=== PATIENT | female | born 1965 | race American Indian/Alaskan Native ===

== ENCOUNTER 2017-02-16 15:09 | Emergency (ER) | payer OTHER ==
[2017-02-16 15:37] VITALS: BP 177/108
--- NOTE | 2017-02-16 16:48 | Emergency Department Report ---
ED ENT HPI - General Chief complaint: Sore Throat Stated complaint: TONSIL SWOLLEN AND FEVER Time Seen by Provider: 02/16/17 16:47 Source: patient Mode of arrival: Ambulatory Limitations: No Limitations - History of Present Illness MD complaint: sore throat -: Gradual, days(s) Location: throat Quality: burning, aching Worsens with: swallowing - Related Data Home Medications Medication Instructions Recorded Confirmed Last Taken Topiramate [Topamax] 50 mg PO BID 12/23/15 12/23/15 Unknown Previous Rx's Medication Instructions Recorded Last Taken Type Aspirin EC [Aspirin Enteric Coated 325 mg PO QDAY #30 tablet 12/24/15 Unknown Rx TAB] Calcium Carbonate [Calcium] 500 mg PO DAILY #30 tablet 12/24/15 Unknown Rx Diltiazem HCl [Diltiazem ER] 180 mg PO DAILY #30 capsule.er 12/24/15 Unknown Rx Potassium Chloride [K-Dur] 10 meq PO QDAY #30 tablet 12/24/15 Unknown Rx Ranitidine HCl [Zantac 150 MG TAB] 150 mg PO BID #60 tablet 12/24/15 Unknown Rx Sertraline [Zoloft] 50 mg PO QDAY #30 tablet 12/24/15 Unknown Rx Topiramate [Topamax] 50 mg PO BID #60 tablet 12/24/15 Unknown Rx Acetaminophen/Codeine [Tylenol #3] 1 tab PO Q6H PRN #8 tab 05/02/16 Unknown Rx Hydrochlorothiazide [HCTZ] 25 mg PO QDAY #30 tablet 05/02/16 Unknown Rx Amoxicillin [Amoxicillin TAB] 875 mg PO BID #20 tablet 02/16/17 Unknown Rx Prednisone [predniSONE 10 mg 10 mg PO .TAPER #1 tab.ds.pk 02/16/17 Unknown Rx (6-Day Pack, 21 Tabs)] Promethazine [Phenergan TAB] 25 mg PO Q8HR PRN #12 tab 02/16/17 Unknown Rx Allergies Allergy/AdvReac Type Severity Reaction Status Date / Time No Known Allergies Allergy Verified 05/01/16 18:02 ED Dental HPI - General Chief complaint: Sore Throat Stated complaint: TONSIL SWOLLEN AND FEVER Time Seen by Provider: 02/16/17 16:47 Source: patient Mode of arrival: Ambulatory Limitations: No Limitations - History of Present Illness MD complaint: sore throat -: Gradual, days(s) Severity: moderate Quality: burning Worsens with: swallowing - Related Data Home Medications Medication Instructions Recorded Confirmed Last Taken Topiramate [Topamax] 50 mg PO BID 12/23/15 12/23/15 Unknown Previous Rx's Medication Instructions Recorded Last Taken Type Aspirin EC [Aspirin Enteric Coated 325 mg PO QDAY #30 tablet 12/24/15 Unknown Rx TAB] Calcium Carbonate [Calcium] 500 mg PO DAILY #30 tablet 12/24/15 Unknown Rx Diltiazem HCl [Diltiazem ER] 180 mg PO DAILY #30 capsule.er 12/24/15 Unknown Rx Potassium Chloride [K-Dur] 10 meq PO QDAY #30 tablet 12/24/15 Unknown Rx Ranitidine HCl [Zantac 150 MG TAB] 150 mg PO BID #60 tablet 12/24/15 Unknown Rx Sertraline [Zoloft] 50 mg PO QDAY #30 tablet 12/24/15 Unknown Rx Topiramate [Topamax] 50 mg PO BID #60 tablet 12/24/15 Unknown Rx Acetaminophen/Codeine [Tylenol #3] 1 tab PO Q6H PRN #8 tab 05/02/16 Unknown Rx Hydrochlorothiazide [HCTZ] 25 mg PO QDAY #30 tablet 05/02/16 Unknown Rx Amoxicillin [Amoxicillin TAB] 875 mg PO BID #20 tablet 02/16/17 Unknown Rx Prednisone [predniSONE 10 mg 10 mg PO .TAPER #1 tab.ds.pk 02/16/17 Unknown Rx (6-Day Pack, 21 Tabs)] Promethazine [Phenergan TAB] 25 mg PO Q8HR PRN #12 tab 02/16/17 Unknown Rx Allergies Allergy/AdvReac Type Severity Reaction Status Date / Time No Known Allergies Allergy Verified 05/01/16 18:02 ED Review of Systems ROS: Stated complaint: TONSIL SWOLLEN AND FEVER Other details as noted in HPI Constitutional: chills, fever, malaise Eyes: denies: eye pain, vision change ENT: throat pain Respiratory: denies: cough Cardiovascular: denies: chest pain, palpitations Gastrointestinal: denies: abdominal pain, nausea, vomiting, diarrhea Skin: denies: rash, lesions Neurological: headache ED Past Medical Hx - Past Medical History Hx Hypertension: Yes Hx Congestive Heart Failure: No Hx Diabetes: No Hx GERD: Yes Hx Arthritis: Yes Hx Psychiatric Treatment: Yes (DEPRESSION) Hx Asthma: No Hx COPD: No Additional medical history: ULCERS. ENLARGED LIVER - Surgical History Additional Surgical History: CERVICAL CELLS REMOVED - Social History Smoking Status: Never Smoker Substance Use Type: None - Medications Home Medications: Home Medications Medication Instructions Recorded Confirmed Last Taken Type Topiramate [Topamax] 50 mg PO BID 12/23/15 12/23/15 Unknown History Aspirin EC [Aspirin Enteric Coated 325 mg PO QDAY #30 tablet 12/24/15 Unknown Rx TAB] Calcium Carbonate [Calcium] 500 mg PO DAILY #30 tablet 12/24/15 Unknown Rx Diltiazem HCl [Diltiazem ER] 180 mg PO DAILY #30 capsule.er 12/24/15 Unknown Rx Potassium Chloride [K-Dur] 10 meq PO QDAY #30 tablet 12/24/15 Unknown Rx Ranitidine HCl [Zantac 150 MG TAB] 150 mg PO BID #60 tablet 12/24/15 Unknown Rx Sertraline [Zoloft] 50 mg PO QDAY #30 tablet 12/24/15 Unknown Rx Topiramate [Topamax] 50 mg PO BID #60 tablet 12/24/15 Unknown Rx Acetaminophen/Codeine [Tylenol #3] 1 tab PO Q6H PRN #8 tab 05/02/16 Unknown Rx Hydrochlorothiazide [HCTZ] 25 mg PO QDAY #30 tablet 05/02/16 Unknown Rx Amoxicillin [Amoxicillin TAB] 875 mg PO BID #20 tablet 02/16/17 Unknown Rx Prednisone [predniSONE 10 mg 10 mg PO .TAPER #1 tab.ds.pk 02/16/17 Unknown Rx (6-Day Pack, 21 Tabs)] Promethazine [Phenergan TAB] 25 mg PO Q8HR PRN #12 tab 02/16/17 Unknown Rx ED Physical Exam - General Limitations: No Limitations General appearance: alert, in no apparent distress - Head Head exam: Present: atraumatic, normocephalic - Eye Eye exam: Present: normal appearance - Expanded ENT Exam Expanded Throat exam: Positive: tonsillar erythema, tonsillar exudate - Neck Neck exam: Present: full ROM. Absent: tenderness, meningismus, lymphadenopathy - Respiratory Respiratory exam: Present: normal lung sounds bilaterally. Absent: respiratory distress, wheezes, rales - Cardiovascular Cardiovascular Exam: Present: regular rate - GI/Abdominal GI/Abdominal exam: Present: soft. Absent: distended, tenderness, guarding - Neurological Exam Neurological exam: Present: alert, oriented X3, CN II-XII intact. Absent: altered - Skin Skin exam: Present: warm, dry, intact, normal color. Absent: rash ED Course Vital Signs 02/16/17 15:31 Temperature 98.9 F Pulse Rate 93 H Respiratory 18 Rate Blood Pressure 177/108 O2 Sat by Pulse 96 Oximetry Critical care attestation.: If time is entered above; I have spent that time in minutes in the direct care of this critically ill patient, excluding procedure time. ED Disposition Clinical Impression: Tonsillitis Disposition: DISCHARGED TO HOME OR SELFCARE Is pt being admited?: No Condition: Stable Instructions: Tonsillitis (ED) Prescriptions: Amoxicillin [Amoxicillin TAB] 875 mg PO BID #20 tablet Prednisone [predniSONE 10 mg (6-Day Pack, 21 Tabs)] 10 mg PO .TAPER #1 tab.ds.pk Promethazine [Phenergan TAB] 25 mg PO Q8HR PRN #12 tab PRN Reason: Nausea Forms: Work/School Release Form(ED)
[2017-02-16] MEDS ORDERED: XYLOCAINE 1% MPF 5 mL INFILTRATI ONE (16:51)
[2017-02-16] MEDS ORDERED: ROCEPHIN IM ONE (16:51)
== END 2017-02-16 17:31 | disposition home or self-care (01) ==
LOC: ED 15:09
DX: J03.90 Acute tonsillitis, unspecified (principal); I10 Essential (primary) hypertension; K21.9 Gastro-esophageal reflux disease without esophagitis; M19.90 Unspecified osteoarthritis, unspecified site; F32.9 Major depressive disorder, single episode, unspecified; Z79.82 Long term (current) use of aspirin
CPT/HCPCS: 87116; 87430; 96372; 99282; J0696

== ENCOUNTER 2017-09-09 16:30 | Emergency (ER) | payer SELFPAY ==
--- NOTE | 2017-09-09 17:11 | Emergency Department Report ---
Stated Complaint: RT EYE REDNESS Time Seen by Provider: 09/09/17 17:03 - HPI History of Present Illness: Patient is a 51 y/o female with h/o HTN who presents due to subconjunctival bleeding x 3 days. Patient states that she has similar episode about 8 days ago that resolved. Patient denies any eye injury, she denies any coughing or vomiting. Patient states that she has had elevated BP for about 6 week. Patient states that her PCP added norvasc and lisinopril to her HTN medications. She also takes HCTZ. Patient also admits of headache and blurred vision. She denies any numbness or tingling. - ROS Review of Systems: no fever, no chills patientc/o headache, blurred vision, patient denies any numbness or tingling. patient admits of having left chest pain - Exam Physical Exam: alert and oriented x 3, NAD, negative FAST. NO NEUROLOGICAL FOCAL DEFICITS. MSE screening note: Focused history and physical exam performed. Due to findings the following was ordered:CARDIAC PACK ED Disposition for MSE Condition: Stable
[2017-09-09 17:43] LABS: Basophils % (Auto) 0.9 % (0.0-1.8); Eosinophils % (Auto) 2.4 % (0.0-4.3); Hematocrit 43.1 % (30.3-42.9); Hemoglobin 14.5 gm/dl (10.1-14.3); Mean Corpuscular HGB Conc 34 % (30-34); Mean Corpuscular Hemoglobin 29 pg (28-32); Mean Corpuscular Volume 85 fl (79-97); Platelet Count 271 K/mm3 (140-440); Red Blood Count 5.09 M/mm3 (3.65-5.03); Red Cell Distribution Width 15.4 % (13.2-15.2); White Blood Count 6.8 K/mm3 (4.5-11.0)
[2017-09-09 17:52] LABS: INR 1.05 (0.87-1.13)
[2017-09-09 17:53] LABS: Partial Thromboplastin Time 27.2 Sec. (24.2-36.6)
[2017-09-09 18:01] LABS: Alanine Aminotransferase 10 units/L (7-56); Albumin 3.9 g/dL (3.9-5); Alkaline Phosphatase 116 units/L (35-129); Anion Gap 17 mmol/L; BUN/Creatinine Ratio 24; Blood Urea Nitrogen 17 mg/dL (7-17); Calcium 9.4 mg/dL (8.4-10.2); Carbon Dioxide 26 mmol/L (22-30); Chloride 102.9 mmol/L (98-107); Glucose 88 mg/dL (65-100); Potassium 3.7 mmol/L (3.6-5.0); Sodium 142 mmol/L (137-145); Total Protein 7.7 g/dL (6.3-8.2)
--- NOTE | 2017-09-09 19:34 | XRay Report ---
FINAL REPORT EXAM: XR CHEST ROUTINE 2V HISTORY: Chest Pain TECHNIQUE: PA and lateral views of the chest PRIORS: None. FINDINGS: Lines, tubes, and devices: N/A Lungs and pleura: Trachea is normal in position. Lungs are clear of infiltrate, pleural effusion, vascular congestion, or pneumothorax. Cardiomediastinal silhouette: Cardiac and mediastinal silhouettes are unremarkable. Other: Bony structures are intact. IMPRESSION: No acute cardiopulmonary process seen.
[2017-09-09 22:24] VITALS: BP 141/76
--- NOTE | 2017-09-09 23:01 | Emergency Department Report ---
HPI - General Chief Complaint: High BP Time Seen by Provider: 09/09/17 17:03 - HPI HPI: This is a 51 year-old female presents to the emergency department with complaint of some recent hypertension, a busted vessel in the right eye, intermittent blurry vision and intermittent headaches. Patient also had some chest pain a few days ago but that has since resolved. She has a past medical history of arthritis, GERD, hypertension. She goes to [facility] but is looking for a different primary care physician. She is on Norvasc, lisinopril and hydrochlorothiazide and says she is not sure if that is controlling her blood pressure appropriately. She denies any slurred speech, shortness of breath or any neurological deficits. She is not taking anything for her symptoms prior presentation. ED Past Medical Hx - Past Medical History Previous Medical History?: Yes Hx Hypertension: Yes Hx Congestive Heart Failure: No Hx Diabetes: No Hx GERD: Yes Hx Arthritis: Yes Hx Psychiatric Treatment: Yes (DEPRESSION) Hx Asthma: No Hx COPD: No Additional medical history: ULCERS. ENLARGED LIVER - Surgical History Past Surgical History?: Yes Additional Surgical History: CERVICAL CELLS REMOVED - Social History Smoking Status: Never Smoker Substance Use Type: Alcohol - Medications Home Medications: Home Medications Medication Instructions Recorded Confirmed Last Taken Type Topiramate [Topamax] 50 mg PO BID 12/23/15 12/23/15 Unknown History Aspirin EC [Aspirin Enteric Coated 325 mg PO QDAY #30 tablet 12/24/15 Unknown Rx TAB] Calcium Carbonate [Calcium] 500 mg PO DAILY #30 tablet 12/24/15 Unknown Rx Diltiazem HCl [Diltiazem 24Hr ER] 180 mg PO DAILY #30 capsule.er 12/24/15 Unknown Rx Potassium Chloride [K-Dur] 10 meq PO QDAY #30 tablet 12/24/15 Unknown Rx Ranitidine HCl [Zantac 150 MG TAB] 150 mg PO BID #60 tablet 12/24/15 Unknown Rx Sertraline [Zoloft] 50 mg PO QDAY #30 tablet 12/24/15 Unknown Rx Topiramate [Topamax] 50 mg PO BID #60 tablet 12/24/15 Unknown Rx Acetaminophen/Codeine [Tylenol #3] 1 tab PO Q6H PRN #8 tab 05/02/16 Unknown Rx Hydrochlorothiazide [HCTZ] 25 mg PO QDAY #30 tablet 05/02/16 Unknown Rx Amoxicillin [Amoxicillin TAB] 875 mg PO BID #20 tablet 02/16/17 Unknown Rx Prednisone [predniSONE 10 mg 10 mg PO .TAPER #1 tab.ds.pk 02/16/17 Unknown Rx (6-Day Pack, 21 Tabs)] Promethazine [Phenergan TAB] 25 mg PO Q8HR PRN #12 tab 02/16/17 Unknown Rx ED Review of Systems ROS: Stated complaint: RT EYE REDNESS Other details as noted in HPI Comment: All other systems reviewed and negative Constitutional: denies: chills, fever Eyes: vision change, other (right eye redness). denies: eye pain ENT: denies: ear pain, throat pain Respiratory: denies: cough, shortness of breath, wheezing Cardiovascular: denies: palpitations, edema Gastrointestinal: denies: abdominal pain, nausea, diarrhea Genitourinary: denies: urgency, dysuria, discharge Musculoskeletal: denies: back pain, joint swelling, arthralgia Skin: denies: rash, lesions Neurological: headache. denies: numbness, paresthesias Physical Exam - Physical Exam Vital Signs: Vital Signs 09/09/17 09/09/17 09/09/17 17:01 21:14 22:18 Temperature 97.9 F 97.8 F 98.6 F Pulse Rate 84 80 84 Respiratory 16 18 18 Rate Blood Pressure 146/81 145/87 Blood Pressure 141/76 [Left] O2 Sat by Pulse 99 100 Oximetry Physical Exam: GENERAL: The patient is well-developed well-nourished. HENT: Normocephalic. Atraumatic. Patient has moist mucous membranes. EYES: Extraocular motions are intact. Pupils equal reactive to light bilaterally. There is a moderate-sized subconjunctival hemorrhage to the right lateral eye. No nystagmus. Visual acuity: Both eyes 20/20, OD 20/40, OS 20/30. NECK: Supple. Trachea is midline. CHEST/LUNGS: Clear to auscultation. There is no respiratory distress noted. HEART/CARDIOVASCULAR: Regular. There is no tachycardia. There is no gallop rub or murmur. ABDOMEN: Abdomen is soft, nontender. Patient has normal bowel sounds. There is no abdominal distention. SKIN: There is no rash. There is no edema. There is no diaphoresis. NEURO: The patient is awake, alert, and oriented. The patient is cooperative. The patient has no focal neurologic deficits. The patient has normal speech. Cranial nerves II through XII grossly intact. MUSCULOSKELETAL: There is no tenderness or deformity. There is no limitation range of motion. There is no evidence of acute injury. ED Course Vital Signs 09/09/17 09/09/17 09/09/17 17:01 21:14 22:18 Temperature 97.9 F 97.8 F 98.6 F Pulse Rate 84 80 84 Respiratory 16 18 18 Rate Blood Pressure 146/81 145/87 Blood Pressure 141/76 [Left] O2 Sat by Pulse 99 100 Oximetry ED Medical Decision Making - Lab Data Result diagrams: 09/09/17 17:17 09/09/17 17:17 - EKG Data -: EKG Interpreted by Me EKG shows normal: sinus rhythm, axis, intervals (prolonged QT and QTC), QRS complexes, ST-T waves Rate: normal - EKG Data When compared to previous EKG there are: previous EKG unavailable Interpretation: other (sinus rhythm, no ST elevation DE, prolonged QT and QTC) - Radiology Data Radiology results: report reviewed, image reviewed interpreted by me: Chest x-ray does not show any acute process. There are no pleural effusions, obvious pneumonia and there is no pneumothorax. CT of the head does not show any acute intracranial process including no ischemia, shift, mass, bleeding or skull fracture. - Medical Decision Making 51-year-old female presents with a subconjunctival hemorrhage to the right lateral eye that is concerning due to its longevity and size. She complains of some intermittent blurry vision and some intermittent headache. She feels like her blood pressure medications are not working as she had some hypertension earlier with a systolic pressure of about 190. However the patient has been dealing with a large amount of stress as her son is currently in the hospital. She also says that she does drink a lot of caffeinated sodas and eats food with a lot of salt. She does not have any focal, motor or sensory deficits in her cranial nerves are intact. CT of the head did not show any bleed, shift, mass or any acute process. While she does not have any chest pain or shortness of breath, she says that she had some a few days ago that has since resolved. Her EKG does not show any ST elevation DE, ischemia or dysrhythmia. It does show prolonged QT and QTC intervals. I discussed this with the patient and she will bring it to the attention of a primary care physician and possibly a radio frequency design engineer and knows to look up QTC prolongation medications if she were to take anything that is not prescribed by a physician. Her labs showed negative troponins 2. The rest of the labs were unremarkable as well. The patient was reevaluated multiple times for multiple hours and says she is feeling improved. While she does have some decreased visual acuity, it is only mild and the patient was given referrals for ophthalmology for this and for her subconjunctival hemorrhage. She will return to the ER with any worsening of her symptoms or any acute distress. - Differential Diagnosis tension headache, migraine,subconjunctival hemorrhage Critical Care Time: No Critical care attestation.: If time is entered above; I have spent that time in minutes in the direct care of this critically ill patient, excluding procedure time. ED Disposition Clinical Impression: Prolonged Q-T interval on ECG, Subconjunctival hemorrhage of right eye, Blurred vision Headache Qualifiers: Headache type: unspecified Headache chronicity pattern: episodic headache Intractability: not intractable Qualified Code(s): R51 - Headache Disposition: DC-01 TO HOME OR SELFCARE Is pt being admited?: No Condition: Stable Instructions: Subconjunctival Hemorrhage (ED), Acute Headache (ED), Blurred Vision (ED) Additional Instructions: Please follow up with a primary care doctor in the next few days. I have given you a referral for a local nurse educator, Dr. Kang Hurtado, to follow-up regarding your subconjunctival hemorrhage, and intermittent blurred vision. I have also given you multiple referrals for primary care clinics. Lastly, I did do a referral for a radio frequency design engineer, Dr. Chapman, in case she will follow-up regarding your previous chest pain. Return to the emergency Department with any worsening of your symptoms or any acute distress. Please look up a list of QT prolongation medications before you take any medications that are not prescribed by a physician. Please try and stay away from foods that are high and salt and caffeinated products to help with your blood pressure. Keep a blood pressure log. Referrals: KANG HURTADO MD [Staff Physician] - 3-5 Days GILBERTO CHAPMAN MD [Staff Physician] - 3-5 Days CARON RUBI MD [Staff Physician] - 3-[address] [facility] [Outside] - 3-5 Days [facility] [Outside] - 3-5 Days [facility] [Outside] - 3-5 Days Forms: Work/School Release Form(ED) Time of Disposition: 00:21
--- NOTE | 2017-09-09 23:40 | Cat Scan Report ---
FINAL REPORT PROCEDURE: CT HEAD/BRAIN WO CON TECHNIQUE: Computerized tomography of the head was performed without contrast material. HISTORY: blurry vision COMPARISON: No prior studies are available for comparison. FINDINGS: Skull and scalp: Normal. Paranasal sinuses: Normal. Ventricles and subarachnoid spaces: Normal. Cerebrum: No evidence of hemorrhage, acute infarction or mass . Cerebellum and brainstem: No evidence of hemorrhage, acute infarction or mass. Vasculature: Normal. Comments: None. IMPRESSION: Normal Examination
== END 2017-09-10 00:35 | disposition home or self-care (01) ==
LOC: ED 16:30
DX: H11.31 Conjunctival hemorrhage, right eye (principal); R51 Headache; I10 Essential (primary) hypertension; K21.9 Gastro-esophageal reflux disease without esophagitis; M19.90 Unspecified osteoarthritis, unspecified site; Z79.82 Long term (current) use of aspirin
CPT/HCPCS: 36415; 70450; 71020; 80053; 84484; 85025; 85610; 85730; 93005; 93010; 99285

== ENCOUNTER 2019-12-08 17:37 | Emergency (ER) | payer OTHER ==
[2019-12-08 18:23] VITALS: BP 146/64
--- NOTE | 2019-12-08 18:53 | Event Note ---
ED Screening Note Date of service: 12/08/19 Time: 18:52 ED Screening Note: 53 y o female presents with low pelvic pain x 1 week with no relief denies vag bleed, ua sx This initial assessment/diagnostic orders/clinical plan/treatment(s) is/are subject to change based on patients health status, clinical progression and re- assessment by fellow clinical providers in the ED. Further treatment and workup at subsequent clinical providers discretion. Patient/guardian urged not to elope from the ED as their condition may be serious if not clinically assessed and managed. Initial orders include: ua,
[2019-12-08 21:02] LABS: Bilirubin,Urine NEG (Negative); Blood,Urine NEG (Negative); Color,Urine Yellow (Yellow); Mucus,Urine 1+ /HPF; Protein,Urine <15 mg/dL mg/dL (Negative)
--- NOTE | 2019-12-08 23:35 | Emergency Department Report ---
ED Back Pain/Injury HPI - General Chief Complaint: Back Pain/Injury Stated Complaint: BACK PAIN/ABD Time Seen by Provider: 12/08/19 22:11 Source: patient Limitations: No Limitations - History of Present Illness Initial Comments: This is a 53-year-old female here complaining off low back pain and has a history of back pain. Patient's reported that her back pain is located at this right lower back and that she is unable to walk. Reports pain 10 out of 10 achy and radiating down to her pelvic area. Denies any history of kidney stone. Denies fever or chills. She says she does this [facility] for primary care physician. Denies any urinary burning frequency or urgency. Vomiting. Denies diarrhea. Denies chest pain or shortness of breath MD Complaint: back pain Onset/Timin -: days(s) Similar Symptoms Previously: No Place: home Radiation: abdomen Severity: severe Severity scale (0 -10): 10 Quality: sharp, aching Consistency: constant Improves With: none Worsens With: none Context: unknown Associated Symptoms: difficulty walking, abdominal pain. denies: confusion, weakness, chest pain, numbness, cough, difficulty urinating, diaphoresis, incontinence, fever/chills, constipation, headaches, loss of appetite, malaise, nausea/vomiting, rash, seizure, shortness of breath, syncope Treatments Prior to Arrival: other (None) - Related Data Home Medications Medication Instructions Recorded Confirmed Last Taken Topiramate [Topamax] 50 mg PO BID 12/23/15 12/23/15 Unknown Previous Rx's Medication Instructions Recorded Last Taken Type Aspirin EC 325 mg PO QDAY #30 tablet 12/24/15 Unknown Rx Calcium Carbonate [Calcium] 500 mg PO DAILY #30 tablet 12/24/15 Unknown Rx Diltiazem HCl [Diltiazem 24Hr ER] 180 mg PO DAILY #30 capsule.er 12/24/15 Unknown Rx Potassium Chloride [K-Dur] 10 meq PO QDAY #30 tablet 12/24/15 Unknown Rx Sertraline [Zoloft] 50 mg PO QDAY #30 tablet 12/24/15 Unknown Rx Topiramate [Topamax] 50 mg PO BID #60 tablet 12/24/15 Unknown Rx raNITIdine HCl [Zantac] 150 mg PO BID #60 tablet 02/07/16 Unknown Rx Acetaminophen/Codeine [Tylenol #3] 1 tab PO Q6H PRN #8 tab 05/02/16 Unknown Rx hydroCHLOROthiazide [HCTZ] 25 mg PO QDAY #30 tablet 05/02/16 Unknown Rx Amoxicillin [Amoxicillin TAB] 875 mg PO BID #20 tablet 02/16/17 Unknown Rx Prednisone [predniSONE 10 mg 10 mg PO .TAPER #1 tab.ds.pk 02/16/17 Unknown Rx (6-Day Pack, 21 Tabs)] Promethazine [Phenergan TAB] 25 mg PO Q8HR PRN #12 tab 02/16/17 Unknown Rx Allergies Allergy/AdvReac Type Severity Reaction Status Date / Time No Known Allergies Allergy Verified 05/01/16 18:02 ED Review of Systems ROS: Stated complaint: BACK PAIN/ABD Other details as noted in HPI Constitutional: denies: chills, fever Respiratory: denies: cough, shortness of breath, wheezing Cardiovascular: denies: chest pain, palpitations, edema, syncope Gastrointestinal: abdominal pain. denies: nausea, vomiting, diarrhea, constipation Genitourinary: denies: urgency, dysuria, frequency, hematuria, discharge Musculoskeletal: back pain. denies: joint swelling, arthralgia, myalgia Skin: denies: rash Neurological: denies: headache, weakness, numbness, paresthesias ED Past Medical Hx - Past Medical History Previous Medical History?: Yes Hx Hypertension: Yes Hx Congestive Heart Failure: No Hx Diabetes: No Hx GERD: Yes Hx Arthritis: Yes Hx Psychiatric Treatment: Yes (DEPRESSION) Hx Asthma: No Hx COPD: No Additional medical history: ULCERS. ENLARGED LIVER - Surgical History Past Surgical History?: Yes Additional Surgical History: CERVICAL CELLS REMOVED - Family History Family history: hypertension - Social History Smoking Status: Never Smoker Substance Use Type: None - Medications Home Medications: Home Medications Medication Instructions Recorded Confirmed Last Taken Type Topiramate [Topamax] 50 mg PO BID 12/23/15 12/23/15 Unknown History Aspirin EC 325 mg PO QDAY #30 tablet 12/24/15 Unknown Rx Calcium Carbonate [Calcium] 500 mg PO DAILY #30 tablet 12/24/15 Unknown Rx Diltiazem HCl [Diltiazem 24Hr ER] 180 mg PO DAILY #30 capsule.er 12/24/15 Unknown Rx Potassium Chloride [K-Dur] 10 meq PO QDAY #30 tablet 12/24/15 Unknown Rx Sertraline [Zoloft] 50 mg PO QDAY #30 tablet 12/24/15 Unknown Rx Topiramate [Topamax] 50 mg PO BID #60 tablet 12/24/15 Unknown Rx raNITIdine HCl [Zantac] 150 mg PO BID #60 tablet 12/24/15 Unknown Rx Acetaminophen/Codeine [Tylenol #3] 1 tab PO Q6H PRN #8 tab 05/02/16 Unknown Rx hydroCHLOROthiazide [HCTZ] 25 mg PO QDAY #30 tablet 05/02/16 Unknown Rx Amoxicillin [Amoxicillin TAB] 875 mg PO BID #20 tablet 02/16/17 Unknown Rx Prednisone [predniSONE 10 mg 10 mg PO .TAPER #1 tab.ds.pk 02/16/17 Unknown Rx (6-Day Pack, 21 Tabs)] Promethazine [Phenergan TAB] 25 mg PO Q8HR PRN #12 tab 02/16/17 Unknown Rx ED Physical Exam - General Limitations: No Limitations General appearance: alert, in no apparent distress - Head Head exam: Present: atraumatic, normocephalic - Eye Eye exam: Present: normal appearance, PERRL, EOMI Pupils: Present: normal accommodation - Neck Neck exam: Present: normal inspection, full ROM. Absent: tenderness, lymphadenopathy - Respiratory Respiratory exam: Present: normal lung sounds bilaterally. Absent: respiratory distress, chest wall tenderness - Cardiovascular Cardiovascular Exam: Present: regular rate, normal rhythm, normal heart sounds - GI/Abdominal GI/Abdominal exam: Present: soft, normal bowel sounds. Absent: distended, tenderness, organomegaly - Extremities Exam Extremities exam: Present: normal inspection, full ROM, normal capillary refill, other (No cce. + 2 pulses in all extremities, no neurovascular compromise). Absent: tenderness, pedal edema, joint swelling, calf tenderness - Back Exam Back exam: Present: normal inspection, full ROM, tenderness, CVA tenderness (R), other (ambulates without any difficulties). Absent: CVA tenderness (L), muscle spasm, paraspinal tenderness, vertebral tenderness, rash noted - Neurological Exam Neurological exam: Present: alert, oriented X3, normal gait - Psychiatric Psychiatric exam: Present: normal affect, normal mood - Skin Skin exam: Present: warm, dry, intact, normal color. Absent: rash ED Course Vital Signs 12/08/19 12/08/19 18:19 23:37 Temperature 68.0 F L 98.0 F Pulse Rate 78 Respiratory 16 Rate Blood Pressure 146/64 O2 Sat by Pulse 95 Oximetry - Reevaluation(s) Reevaluation #1: 12/09/19 03:27 Patient's stable throughout ED course. Patient swallowing and CT scan, decided to leave . Patient was not in room upon follow-up. ED Medical Decision Making - Lab Data Lab Results 12/08/19 Range/Units 20:20 Urine Color Yellow (Yellow) Urine Turbidity Slightly-cloudy (Clear) Urine pH 6.0 (5.0-7.0) Ur Specific Range 1.026 (1.003-1.030) Urine Protein <15 mg/dl (Negative) mg/dL Urine Glucose (UA) Neg (Negative) mg/dL Urine Ketones Neg (Negative) mg/dL Urine Blood Neg (Negative) Urine Nitrite Neg (Negative) Urine Bilirubin Neg (Negative) Urine Urobilinogen 4.0 (<2.0) mg/dL Ur Leukocyte Esterase Neg (Negative) Urine WBC (Auto) 4.0 (0.0-6.0) /HPF Urine RBC (Auto) 1.0 (0.0-6.0) /HPF U Epithel Cells (Auto) 15.0 H (0-13.0) /HPF Urine Mucus 1+ /HPF - Medical Decision Making 53 O patient here for rt flank painand pelvic pain since this Friday. Physical findings were normal except for evaluating CVA area she reports that area is tender to palpate. I discussed the patient plans and along with her UA results. CT scan was order and well awaiting CT scan to be performed patient's left before she had CT scan. I was unable to locate patient in emergency room area. Critical care attestation.: If time is entered above; I have spent that time in minutes in the direct care of this critically ill patient, excluding procedure time. ED Disposition Clinical Impression: Lower back pain Qualifiers: Chronicity: unspecified Back pain laterality: right Sciatica presence: without sciatica Qualified Code(s): M54.5 - Low back pain Disposition: ELOPED Is pt being admited?: No Does the pt Need Aspirin: No Condition: Stable
== END 2019-12-09 01:35 | disposition left against medical advice (07) ==
LOC: ED 17:37
DX: M54.5 Low back pain (principal); I10 Essential (primary) hypertension; K21.9 Gastro-esophageal reflux disease without esophagitis; M19.90 Unspecified osteoarthritis, unspecified site; F32.9 Major depressive disorder, single episode, unspecified; Z98.890 Other specified postprocedural states; Z79.899 Other long term (current) drug therapy; Z79.2 Long term (current) use of antibiotics
CPT/HCPCS: 81001

== ENCOUNTER 2022-01-12 15:40 | Emergency (ER) | payer OTHER ==
[2022-01-12 19:45] LABS: Basophils # (Auto) 0.1 K/mm3 (0.0-0.1); Basophils % (Auto) 0.8 % (0.0-1.8); Eosinophils % (Auto) 0.5 % (0.0-4.3); Hematocrit 43.5 % (30.3-42.9); Hemoglobin 14.8 gm/dl (10.1-14.3); Lymphocytes # (Auto) 1.9 K/mm3 (1.2-5.4); Lymphocytes % (Auto) 25.1 % (13.4-35.0); Mean Corpuscular HGB Conc 34 % (30-34); Mean Corpuscular Volume 87 fl (79-97); Monocytes # (Auto) 0.3 K/mm3 (0.0-0.8); Monocytes % (Auto) 4.6 % (0.0-7.3); Platelet Count 271 K/mm3 (140-440); Red Cell Distribution Width 15.4 % (13.2-15.2)
[2022-01-12 20:10] LABS: Creatine Kinase MB 1.9 ng/mL (0.0-4.0)
[2022-01-12 20:14] LABS: Alanine Aminotransferase 11 units/L (7-56); Albumin 4.2 g/dL (3.9-5); Blood Urea Nitrogen 19 mg/dL (7-17); Calcium 10.1 mg/dL (8.4-10.2); Hemolysis Index 60
[2022-01-12] MEDS ORDERED: SODIUM CHLORIDE 0.9% 1000 ML 1,000 ML IV ONE (20:18)
[2022-01-12 20:22] LABS: BUN/Creatinine Ratio 32
--- NOTE | 2022-01-12 20:58 | Emergency Department Report ---
ED Dizziness HPI - General Chief Complaint: Syncope Stated Complaint: HBP Source: patient Mode of arrival: Ambulatory Limitations: No Limitations - History of Present Illness Initial Comments: 56-year-old female presents to the ED with complaint of no syncope and dizziness. [place]. States that she was bending over to vacuum a car when she noticed that she got lightheaded . He states that she has been dealing with sinus issues for the last 3 weeks and has been evaluated by her primary care doctor. Patient states that she did eat and drink and felt better afterwards. Patient is alert and oriented x3. No acute distress noted. No ill appearance noted. Patient has a history diabetes, hyperlipidemia,, glaucoma and cataract. -: This afternoon Timing: sudden onset Description: near-syncope History of Same: Yes History of Trauma: No Severity: mild Improves With: rest Associated Symptoms: denies other symptoms - Related Data Home Medications Medication Instructions Recorded Confirmed Last Taken Topiramate [Topamax] 50 mg PO BID 12/23/15 12/23/15 Unknown Previous Rx's Medication Instructions Recorded Last Taken Type Aspirin EC [Ecotrin] 325 mg PO QDAY #30 tablet 12/24/15 Unknown Rx Calcium Carbonate [Calcium] 500 mg PO DAILY #30 tablet 12/24/15 Unknown Rx Diltiazem HCl [Diltiazem 24Hr ER] 180 mg PO DAILY #30 capsule.er 12/24/15 U nknown Rx Potassium Chloride [K-Dur] 10 meq PO QDAY #30 tablet 12/24/15 Unknown Rx Sertraline [Zoloft] 50 mg PO QDAY #30 tablet 12/24/15 Unknown Rx Topiramate [Topamax] 50 mg PO BID #60 tablet 12/24/15 Unknown Rx raNITIdine HCl [Zantac] 150 mg PO BID #60 tablet 12/24/15 Unknown Rx Acetaminophen/Codeine [Tylenol #3] 1 tab PO Q6H PRN #8 tab 05/02/16 Unknown Rx hydroCHLOROthiazide [HCTZ] 25 mg PO QDAY #30 tablet 05/02/16 Unknown Rx Amoxicillin [Amoxicillin TAB] 875 mg PO BID #20 tablet 02/16/17 Unknown Rx Prednisone [predniSONE 10 mg 10 mg PO .TAPER #1 tab.ds.pk 02/16/17 Unknown Rx (6-Day Pack, 21 Tabs)] Promethazine [Phenergan TAB] 25 mg PO Q8HR PRN #12 tab 02/16/17 Unknown Rx Amoxicillin/Potassium Clav 1 each PO BID 10 Days #20 tab 01/12/22 Unknown Rx [Augmentin 875-125 Tablet] predniSONE [Deltasone] 50 mg PO QDAY 3 Days #3 tab 01/12/22 Unknown Rx Allergies Allergy/AdvReac Type Severity Reaction Status Date / Time No Known Allergies Allergy Verified 05/01/16 18:02 ED Review of Systems ROS: Stated complaint: HBP Other details as noted in HPI Constitutional: denies: chills, fever Eyes: denies: eye pain, eye discharge, vision change ENT: denies: ear pain, throat pain Respiratory: denies: cough, shortness of breath, wheezing Cardiovascular: denies: chest pain, palpitations Endocrine: no symptoms reported Gastrointestinal: denies: abdominal pain, nausea, diarrhea Genitourinary: denies: urgency, dysuria, discharge Musculoskeletal: denies: back pain, joint swelling, arthralgia Skin: denies: rash, lesions Neurological: denies: headache, weakness, paresthesias Psychiatric: denies: anxiety, depression Hematological/Lymphatic: denies: easy bleeding, easy bruising ED Past Medical Hx - Past Medical History Hx Hypertension: Yes Hx Congestive Heart Failure: No Hx Diabetes: No Hx GERD: Yes Hx Arthritis: Yes Hx Psychiatric Treatment: Yes (DEPRESSION) Hx Asthma: No Hx COPD: No Additional medical history: ULCERS. ENLARGED LIVER - Surgical History Additional Surgical History: CERVICAL CELLS REMOVED - Social History Smoking Status: Never Smoker Substance Use Type: None - Medications Home Medications: Home Medications Medication Instructions Recorded Confirmed Last Taken Type Topiramate [Topamax] 50 mg PO BID 12/23/15 12/23/15 Unknown History Aspirin EC [Ecotrin] 325 mg PO QDAY #30 tablet 12/24/15 Unknown Rx Calcium Carbonate [Calcium] 500 mg PO DAILY #30 tablet 12/24/15 Unknown Rx Diltiazem HCl [Diltiazem 24Hr ER] 180 mg PO DAILY #30 capsule.er 12/24/15 Unknown Rx Potassium Chloride [K-Dur] 10 meq PO QDAY #30 tablet 12/24/15 Unknown Rx Sertraline [Zoloft] 50 mg PO QDAY #30 tablet 12/24/15 Unknown Rx Topiramate [Topamax] 50 mg PO BID #60 tablet 12/24/15 Unknown Rx raNITIdine HCl [Zantac] 150 mg PO BID #60 tablet 12/24/15 Unknown Rx Acetaminophen/Codeine [Tylenol #3] 1 tab PO Q6H PRN #8 tab 05/02/16 Unknown Rx hydroCHLOROthiazide [HCTZ] 25 mg PO QDAY #30 tablet 05/02/16 Unknown Rx Amoxicillin [Amoxicillin TAB] 875 mg PO BID #20 tablet 02/16/17 Unknown Rx Prednisone [predniSONE 10 mg 10 mg PO .TAPER #1 tab.ds.pk 02/16/17 Unknown Rx (6-Day Pack, 21 Tabs)] Promethazine [Phenergan TAB] 25 mg PO Q8HR PRN #12 tab 02/16/17 Unknown Rx Amoxicillin/Potassium Clav 1 each PO BID 10 Days #20 tab 01/12/22 Unknown Rx [Augmentin 875-125 Tablet] predniSONE [Deltasone] 50 mg PO QDAY 3 Days #3 tab 01/12/22 Unknown Rx ED Physical Exam - General Limitations: No Limitations General appearance: alert, in no apparent distress - Head Head exam: Present: atraumatic, normocephalic - Eye Eye exam: Present: normal appearance - ENT ENT exam: Present: mucous membranes moist - Neck Neck exam: Present: normal inspection - Respiratory Respiratory exam: Present: normal lung sounds bilaterally. Absent: respiratory distress - Cardiovascular Cardiovascular Exam: Present: regular rate, normal rhythm. Absent: systolic murmur, diastolic murmur, rubs, gallop - GI/Abdominal GI/Abdominal exam: Present: soft, normal bowel sounds - Extremities Exam Extremities exam: Present: normal inspection - Back Exam Back exam: Present: normal inspection - Neurological Exam Neurological exam: Present: alert, oriented X3 - Psychiatric Psychiatric exam: Present: normal affect, normal mood - Skin Skin exam: Present: warm, dry, intact, normal color. Absent: rash ED Course Vital Signs 01/12/22 15:50 Temperature 97.7 F Pulse Rate 75 Respiratory 18 Rate Blood Pressure 143/74 O2 Sat by Pulse 98 Oximetry ED Medical Decision Making - Lab Data Result diagrams: 01/12/22 19:16 01/12/22 19:16 - Medical Decision Making 56-year-old female presents to the ED with complaint of no syncope and dizziness. She states that [place]. States that she was bending over to vacuum a car when she noticed that she got lightheaded . He states that she has been dealing with sinus issues for the last 3 weeks and has been evaluated by her primary care doctor. Patient states that she did eat and drink and felt better afterwards. Patient is alert and oriented x3. No acute distress noted. No ill appearance noted. Patient has a history diabetes, hyperlipidemia,, glaucoma and cataract. Physical examination patient has some tenderness noted to the frontal and maxillary with palpation. No pertinent labs Rechecked the patient is resting quietly quietly and comfortable and feeling better. I discussed the results of diagnostic study, my clinical impression and the plan for further treatment with the patient. Patient agrees with plan and discharge at this present time. All question addressed. I have given the patient instruction regarding a diagnosis ,expectation ,follow- up and return precaution. I explained to the patient that emergent condition may arise and to return to the ED for new worsen and any new persisting condition. I have explained the importance of following up with the primary care physician or referral physician listed below has instructed. The patient verbalized understanding of discharge instruction. Critical care attestation.: If time is entered above; I have spent that time in minutes in the direct care of this critically ill patient, excluding procedure time. ED Disposition Clinical Impression: Recurrent frontal sinusitis Disposition: 01 HOME / SELF CARE / HOMELESS Is pt being admited?: No Does the pt Need Aspirin: No Condition: Stable Instructions: Sinusitis, Adult, [id number] Additional Instructions: Take medication as prescribed Return to ED for any worsening symptom Prescriptions: Amoxicillin/Potassium Clav [Augmentin 875-125 Tablet] 1 each PO BID 10 Days #20 tab predniSONE [Deltasone] 50 mg PO QDAY 3 Days #3 tab Referrals: PRIMARY CARE, [Primary Care Provider] - 3-5 Days Forms: Work/School Release Form(ED)
[2022-01-12 21:25] VITALS: BP 138/68
--- NOTE | 2022-01-13 09:39 | Electrocardiograph Report ---
[facility] Test Date: 2022-01-12 Test Time: 19:38:52 Pat Name: JOHN DODSON Department: Room: Gender: F [employer]: ADE : 1965 Requested By: SONIA GOLDMAN Order Number: [id number] Reading MD: Giorgi Regan Measurements Intervals [place] Rate: 67 P: 51 NM: 140 QRS: 24 QRSD: 96 T: -24 QT: 406 QTc: 428 Interpretive Statements Sinus rhythm Nonspecific T abnormalities, anterior leads No previous ECG available for comparison Electronically Signed On 01-13-2022 9:39:16 EST by Giorgi Regan
== END 2022-01-12 21:25 | disposition home or self-care (01) ==
LOC: ED 15:40
DX: J32.1 Chronic frontal sinusitis (principal); I10 Essential (primary) hypertension; M19.90 Unspecified osteoarthritis, unspecified site; K21.9 Gastro-esophageal reflux disease without esophagitis; F32.A Depression, unspecified
CPT/HCPCS: 36415; 80053; 82550; 82553; 83735; 84484; 85025; 93005; 93010; 99283